=== PATIENT | female | born 1985 | race African-American/Black ===

== ENCOUNTER 2022-05-13 03:53 | Emergency (ER) | payer MEDICAID ==
[~2022-05-13] VITALS: Ht 170.2 cm; Wt 80.0 kg
[2022-05-13 03:53] VITALS: BP 148/96
[2022-05-13] MEDS ORDERED: KETOROLAC TROMETH 60MG/2ML VIAL IM ONE (05:00)
[2022-05-13] MEDS ORDERED: methylPREDNISolone SOD SUCC 125 MG/2 ML VL IM ONE (05:00)
[2022-05-13] MEDS ORDERED: ONDANSETRON ODT 4 MG TAB PO ONE (05:00)
[2022-05-13] MEDS ORDERED: IBUP800T26 PO (05:32)
[2022-05-13] MEDS ORDERED: CYCL-837 PO (05:32)
== END 2022-05-13 05:54 | disposition home or self-care (01) ==
LOC: ER 03:53
DX: M54.6 Pain in thoracic spine (principal); G89.29 Other chronic pain
CPT/HCPCS: 96372; 99284; J1885; J2930; Q0162